=== PATIENT | male | born 1985 | race Caucasian/White ===

== ENCOUNTER 2016-06-22 05:52 | Emergency (ER) | payer OTHER ==
[2016-06-22] MEDS ORDERED: ONDANSETRON 4 MG TAB (S0181) As Ordered ONE (07:20)
[2016-06-22] MEDS ORDERED: IBUPROFEN 600 MG TAB As Ordered ONE (07:21)
[2016-06-22] MEDS ORDERED: PERCOCET 5MG/325MG TAB As Ordered ONE (07:21)
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
== END 2016-06-22 07:27 | disposition home or self-care (01) ==
LOC: M ED 05:52
DX: S33.9XXA Sprain of unspecified parts of lumbar spine and pelvis, initial encounter (principal); S23.3XXA Sprain of ligaments of thoracic spine, initial encounter; V49.40XA Driver injured in collision with unspecified motor vehicles in traffic accident, initial encounter; Y92.410 Unspecified street and highway as the place of occurrence of the external cause; Y93.89 Activity, other specified; Y99.8 Other external cause status; Z79.899 Other long term (current) drug therapy; Z88.1 Allergy status to other antibiotic agents